=== PATIENT | female | born 1980 | race Two or more races ===

== ENCOUNTER 2020-04-30 11:02 | Emergency (ER) | payer OTHER ==
[~2020-04-30] VITALS: Ht 167.6 cm; Wt 129.0 kg
[2020-04-30] MEDS ORDERED: diazePAM 5 MG TABLET PO ONE (12:30)
[2020-04-30] MEDS ORDERED: KETOROLAC 60 MG/2 ML VIAL. IM ONE (12:30)
--- NOTE | 2020-04-30 12:43 | ED.ADGEN ---
Past Medical History Past Medical History: Anxiety, Hypertension, Migraines Past Surgical History: , Tonsillectomy Smoking Status: Never Smoker Alcohol Use: None General Adult EDM: Chief Complaint: LOWER EXT PAIN HPI: HPI: Patient is a 39-year-old female who presents to the emergency room complaining of right leg pain. She has had chronic knee pain for the last 4 years. She is now having pain in her calf and behind her knee. She is also having a tingling sensation in her leg and shooting pains through her hip. She denies any trauma. 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 Review of Systems: Review of Systems: General: Denies fever, chills, sweats, fatigue Eyes: Denies drainage, blurred vision, eye redness HENT: Denies rhinorrhea, sore throat, earache Respiratory: Denies cough, shortness of breath, wheezing Cardiac: Denies edema, palpitations, chest pain GI: Denies abdominal pain, Nausea, vomiting MSK: Denies back pain, neck pain Skin: Denies rash, jaundice Neuro: Denies headache, dizziness Psychiatric: Denies SI/HI Current Medications: Current Medications Medications (Trade) Dose Ordered Sig/Lynn Start Time Stop Time Status Last Admin Dose Admin Diazepam (Valium) 5 mg 1X ONCE 04/30/20 12:30 04/30/20 12:33 DC 04/30/20 13:28 5 MG Ketorolac Tromethamine (Toradol 30mg Vial) 30 mg 1X ONCE 04/30/20 13:30 04/30/20 13:31 DC 04/30/20 13:28 30 MG Ketorolac Tromethamine (Toradol Im) 60 mg 1X ONCE 04/30/20 12:30 04/30/20 13:23 DC Allergies: Allergies: Allergies Coded Allergies Type Severity Reaction Last Updated Verified Penicillins Allergy Unknown RASH 04/30/20 Yes Physical Exam: PE: General: Awake, alert, NAD. Well Nourished, well hydrated. Cooperative HEENT: Atraumatic, EOMI, PERRL, airway patent, moist oral mucosa Neck: Supple, trachea midline Respiratory: CTA bilaterally, normal effort, no wheezing/crackles CV: RRR, no murmur, cap refill <2 GI: Soft, nondistended, nontender, no masses MSK: Right lower extremity: Trace nonpitting edema, tenderness along the posterior calf, no knee effusion, no signs of trauma, no deformity, normal sensation, normal strength Skin: Warm, dry, intact Neuro: A&O x3, speech NL, sensory and motor grossly intact, no focal deficits Psych: Normal affect, normal mood, not suicidal or homicidal Current Patient Data: Labs: Laboratory Tests Test 04/30/20 13:10 Sodium Level 141 mmol/L (136-145) Potassium Level 3.7 mmol/L (3.5-5.1) Chloride Level 104 mmol/L (98-107) Carbon Dioxide Level 26 mmol/L (21-32) Anion Gap 11 (6-14) Blood Urea Nitrogen 13 mg/dL (7-20) Creatinine 0.7 mg/dL (0.6-1.0) Estimated GFR (Cockcroft-Gault) 93.2 Glucose Level 135 mg/dL (70-99) H Calcium Level 9.4 mg/dL (8.5-10.1) Magnesium Level 2.1 mg/dL (1.8-2.4) Laboratory Tests 04/30/20 13:10 Vital Signs: Vital Signs Date Time Temp Pulse Resp B/P (MAP) Pulse Ox O2 Delivery O2 Flow Rate FiO2 04/30/20 11:07 97.9 84 16 139/88 (105) 99 Room Air 97.9 EKG: EKG: [] Heart Score: Risk Factors: Risk Factors: DM, Current or recent (<one month) smoker, HTN, HLP, family history of CAD, obesity. Risk Scores: Score 0 - 3: 2.5% MACE over next 6 weeks - Discharge Home Score 4 - 6: 20.3% MACE over next 6 weeks - Admit for Clinical Observation Score 7 - 10: 72.7% MACE over next 6 weeks - Early Invasive Strategies Radiology/Procedures: Radiology/Procedures: [] Course & Med Decision Making: Course & Med Decision Making Pertinent Labs and Imaging studies reviewed. (See chart for details) Patient is a 39-year-old female who presents to the emergency room complaining of right leg pain. Ultrasound will be ordered to rule out DVT due to mild swelling and calf tenderness. Ultrasound is negative. Electrolytes are done to rule out muscle spasms due to electrolyte abnormalities. Electrolytes were normal. Patient is feeling significantly better with symptomatic care. Patient's test results and vitals while in the ED were fully reviewed and discu ssed with the patient. Patient is stable and at this time does not need admission to the hospital. We have discussed strict return precautions and the importance of following up with their Primary Care Physician. Patient stated understanding and was given an opportunity to ask any questions. Patient is in agreement with plan. Dragon Disclaimer: Dragon Disclaimer: This electronic medical record was generated, in whole or in part, using a voice recognition dictation system. Departure Departure Impression: Primary Impression: Knee pain Additional Impression: Muscle spasm Disposition: 01 DC HOME SELF CARE/HOMELESS Condition: STABLE Referrals: NO PCP (PCP) Patient Instructions: Knee Pain, Muscle Cramps, [id number] Scripts Methocarbamol (ROBAXIN-750) 750 Mg Tablet 1 TAB PO TID PRN for MUSCLE SPASMS for 10 Days, #30 TAB 0 Refills Prov: JANELL HALL MD 04/30/20 Problem Qualifiers JANELL HALL MD Apr 30, 2020 12:43
--- NOTE | 2020-04-30 13:13 | RAD ---
Examination: Right Lower Extremity Venous Doppler Ultrasound History: Right lower extremity pain, swelling Comparison: None Procedure: Vera scale, color flow 2D and spectal waveform analysis images are obtained with and without compression in the area of the common femoral vein, superficial femoral vein - femoral vein junction, main femoral vein (superficial femoral vein) and popliteal vein. Veins of the proximal calf are also imaged. Findings: There is normal duplex flow, color flow and compressibility of all visualized vein segments. No evidence of deep venous thrombus is present. Impression: No evidence of DVT in the right lower extremity venous system. Electronically signed by: Wilfredo Rudolph MD (04/30/2020 1:10 PM) [id number]
[2020-04-30] MEDS ORDERED: KETOROLAC 30 MG/ML VIAL. IVP ONE (13:30)
[2020-04-30 13:57] LABS: CALCIUM 9.4 mg/dL (8.5-10.1); CREATININE 0.7 mg/dL (0.6-1.0); GFR 93.2; MAGNESIUM 2.1 mg/dL (1.8-2.4); POTASSIUM 3.7 mmol/L (3.5-5.1)
[2020-04-30 14:00] VITALS: BP 128/79
[2020-04-30] MEDS ORDERED: METH-38 PO (14:37)
== END 2020-04-30 15:30 | disposition home or self-care (01) ==
LOC: ER 11:02
DX: M25.561 Pain in right knee (principal); M79.604 Pain in right leg; M62.838 Other muscle spasm; R20.2 Paresthesia of skin; F41.9 Anxiety disorder, unspecified; I10 Essential (primary) hypertension; G43.909 Migraine, unspecified, not intractable, without status migrainosus; Z98.890 Other specified postprocedural states; Z90.89 Acquired absence of other organs; Z88.0 Allergy status to penicillin
CPT/HCPCS: 36415; 80048; 83735; 93971; 96374; 99284; J1885

== ENCOUNTER → 2021-01-03 | Outpatient (CLI) | payer OTHER ==
[~2021-01-03] MED LIST: METH-38 PO
--- NOTE | 2021-01-03 14:24 | KCIC ---
MR LUMBAR SPINE WO [id number] Date: 01/03/2021 10:00 AM Indication: LBP / Spl. Instructions: LBP with numbness from right hip to foot. NKI. Sx since er. Comparison: None. Technique: Multi-planar multi-weighted magnetic resonance imaging of the lumbar spine was performed w ithout intravenous contrast using the standard lumbar spine protocol. FINDINGS: The lumbar spine is normally aligned. No acute fracture. Mild multilevel degenerative disc desiccatio n and disc height loss. S2 segment probable hemangioma. The conus terminates at a normal level. No abnormal signal is seen within the visualized distal spina l cord. No clumping of intrathecal nerve roots. No soft tissue abnormality in the visualized abdomen or pelvis. T12-L1: No disc bulge. No facet arthropathy. No significant spinal stenosis or neural foraminal narro wing. L1-L2: No disc bulge. No facet arthropathy. No significant spinal stenosis or neural foraminal narrow ing. L2-L3: No disc bulge. No facet arthropathy. No significant spinal stenosis or neural foraminal narrow ing. L3-L4: Disc bulge. Mild facet arthropathy. No significant spinal stenosis. Mild left neural foraminal narrowing. L4-L5: Disc bulge with tiny central protrusion. Mild facet arthropathy. No significant spinal stenosi s or neural foraminal narrowing. L5-S1: Disc bulge with annular tear. No facet arthropathy. No significant spinal stenosis or neural f oraminal narrowing. IMPRESSION: Mild lumbar spondylosis. Electronically signed by: Mayito Milton MD (01/03/2021 2:22 PM) [id number]
== END ==
LOC: KCIC MRI 09:45
PROVIDERS: ATTEND Orthopaedic Surgery
DX: M51.17 Intervertebral disc disorders with radiculopathy, lumbosacral region (principal); M47.26 Other spondylosis with radiculopathy, lumbar region
CPT/HCPCS: 72148

== ENCOUNTER → 2021-02-21 | Outpatient (CLI) | payer OTHER ==
[~2021-02-21] MED LIST changes: +AMLO-186 PO; +METF10007 PO; +insulin
--- NOTE | 2021-02-21 12:14 | PDOC1 ---
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 and reports is became very difficult for her to walk to the point the manager environmental health and safety sent her home about a week ago because she was unable to walk with as much speed or agility as she usually does at work and they were worried about her has been off work now for about a week patient reports the pain is significant in the low back rating the right lower extremity posterior gluteus posterior lateral thigh lateral anterior thigh anteromedial thigh medial lower leg into the calf and ankle with numbness and tingling in all the toes on the right leg as well this is worse with standing walking changing positions better with sitting or laying down generally awakens her from sleep about 3-4 times a night patient reports is not effective bowel bladder control but does affect her ability to walk however she does not use any assistive devices to ambulate. Patient has had stretching strengthening therapies in the past and continues to do stretching and strengthening on her own currently has not had any formal therapy recently patient has not had any other chiropractic treatment. Patient is been taking [id number] Motrin as well as Tylenol without significant decrease in pain. She did have an MRI scan of the lumbar spine showing at the L4-5 and L5-S1 discs shows central protrusion with a tiny disc bulge L4-5 L5-S1 shows disc bulge with annular tear. Patient did see neurosurgeon who is recommending conservative measures at this time and no surgery planned. Patient reports no loss of motor function but significant fatigability of the right lower extremity with walking and even with standing. Patient scribes pain is constant tingling numbness radiating the foot aching and dull in the back patient rates her disability rating 0-10 10 me the worst is a 7 with family home responsibilities and social activity 8 with recreation 9 with occupation 7 with self-care activities and 5 life support activities PAST MEDICAL HISTORY: PMH: Arthritis, hypertension, shortness of breath, recently diagnosed type 2 diabetes PREVIOUS SURGERIES: Past Surgical Hx: x3, tonsillectomy, IUD removal, D&C CURRENT MEDICATIONS: Current Meds: Active Scripts Medications Dose Route/Sig Max Daily Dose Days Date Category [insulin] 10 02/21/21 Reported Metformin Hcl 1,000 Mg Tablet 1,000 Mg PO [id number] 02/21/21 Reported Amlodipine Besylate 5 Mg Tablet 5 Mg PO DAILY 02/21/21 Reported ALLERGIES; Allergies: Coded Allergies: Penicillins (Verified Allergy, Unknown, RASH, 04/30/20) FAMILY HISTORY: Family Hx: No major medical problems or conditions that she is aware of. SOCIAL HISTORY: Social Hx: Patient is nondrug alcohol does not smoke says any illegal illicit recreational drugs is single has 2 children living at home lives locally in [facility] and works at a local [employer] center. REVIEW OF SYSTEMS: ROS: Positive for those items mentioned in history of present illness, all systems are reviewed, otherwise negative ,and are complete full and well-documented on patient's chart. PHYSICAL EXAM: VS: Blood pressure is 138/91 pulse 70 respirations 18 temperature 90.4 F height is 5 foot 6 inches weight is 302 pounds PE: PHYSICAL EXAMINATION: GENERAL: The patient is awake, alert, oriented, appropriate, very pleasant in demeanor HEENT: Shows normocephalic, atraumatic. Extraocular movements are intact and symmetrical. Oral cavity: Mucous membranes moist and pink. Dentition is intact. NECK: Shows anterior throat supple without palpable lymphadenopathy noted. Swallow reflex symmetrical. CHEST: Shows normal on inspection. Breath sounds are clear bilaterally, no rales rhonchi wheezes auscultated. HEART: Shows S1, S2 clear. No murmurs auscultated. ABDOMEN: Soft, nontender, nondistended, obese. No palpable organomegaly is noted. No rebound or guarding demonstrated. BACK: Shows spine grossly in the midline. Normal-appearing cervical lordotic curvature. There is slightly increased thoracic kyphosis, some minor flattening of the lumbar lordotic curvature. Lumbar paraspinous muscles show symmetrical on inspection, on palpation shows some moderate tenderness diffusely throughout the upper, middle and lower distribution of the paraspinous muscles bilaterally and also into the lower thoracic paraspinous musculature, firm and tender, but without specific trigger points, without radiation of pain. The patient has good rotational motion of the lumbar spine, both laterally as well as extension and flexion without significant difficulty. No tenderness over the spinous processes, sacrum or sacroiliac regions. EXTREMITIES: Lower extremities show deep tendon reflexes 1 in the patellar and tendo calcaneus tendons. Motor exam is 4 on a scale of 5 with right dorsiflexion, extension, quadriceps and hamstring flexion and 5/5 on the left. Peripheral pulses are 1+ posterior tibial. No peripheral edema is noted bilaterally. Lower extremities are warm and dry to touch, equal in color and appearance. Straight leg raise noted to be positive on the right about 45 degrees, left side is negative. Gaenslen's and Eric's maneuvers are negative as well. The patient is able to stand, stand on her toes without significant difficulty or loss of balance, walks with a slight favoring gait does appear to favor the right lower extremity not use any assistive devices to ambulate. SKIN: Shows warm and dry, good turgor. No edema. No sores, rashes or bruising throughout. IMPRESSION: Impression: 40-year-old female with several year history of low back right lower extremity pain and much worse over the past few months with difficulty walking, and radiculopathy in L4-5 dermatomal distribution on the right. MRI scan lumbar spine as noted Hypertension Arthritis Obesity Type 2 diabetes Plan: Options were discussed the patient including conservative management physical therapies and interventional techniques. Patient is currently doing stretching strength exercises on her own staying active until last week at work and is taking oral analgesics, she would like to pursue interventional techniques. We discussed a lumbar epidural steroid injection using descriptions as well as anatomical models to describe the procedure. Patient wait for preauthorization with insurance provider once from today and will return for L4- 5 level translaminar lumbar epidural steroid injection at that time. The meantime, will call in a [email or web address] Dosepak for her to her local pharmacy patient was given instructions well side effects aware of with the medication. CONSUELO ALVAREZ MD Feb 21, 2021 12:14
== END | disposition home or self-care (01) ==
LOC: PNCL 10:08
PROVIDERS: ATTEND Anesthesiology
DX: M54.5 Low back pain (principal); M79.604 Pain in right leg; M19.90 Unspecified osteoarthritis, unspecified site; I10 Essential (primary) hypertension; E11.9 Type 2 diabetes mellitus without complications; Z79.899 Other long term (current) drug therapy; Z98.890 Other specified postprocedural states; Z88.0 Allergy status to penicillin
CPT/HCPCS: G0463

== ENCOUNTER → 2021-03-08 | Outpatient (CLI) | payer OTHER ==
[~2021-03-08] MED LIST changes: +IOHEXOL 180 MG/ML 10 ML VIAL. ONE; +METF500T16 PO; -insulin; +insulin SUBCUT; +methylPREDNISolone ACETATE 80 MG/ML VIAL. ONE
--- NOTE | 2021-03-08 10:31 | PDOC ---
Progress Note - Pain Clinic Date of Service: DOS: DATE: 03/08/21 TIME: 10:27 Diagnosis: Dx: Lumbar radiculopathy with lumbar degenerative disc disease History or Present Illness: HPI: 40-year-old female returns for follow-up status post evaluation and Medrol Dosepak patient reports still significant pain in the low back and right lower extremity patient reports that the pain is now across the low back and on the left side of the low back which it was not previously is a new finding and still on the right side in the right lower extremity posterior gluteus posterior lateral thigh lateral anterior thigh anterior medial thigh patient reports is a form scale 10 is worst average and least and that the Medrol pack did help to decrease the pain by about 50% while she was taking it but the pain is returning to its baseline level. Patient reports it is aching pain is tingling and burning in the right leg in the low back across the low back into the left side now as well as the right. Patient reports no bowel or bladder incontinence no motor loss but significant fatigability of the right leg with standing walking and changing positions. Patient reports still awakens her from sleep at night about every 4-5 hours. Physical Exam: VS: Blood pressure is 143/106 pulse 87 respirations are 16 temperature is 98.2 F height is 5 feet 6 inches weight is 305 pounds. PE: PHYSICAL EXAMINATION: GENERAL: The patient is awake, alert, oriented, appropriate, very pleasant in demeanor HEENT: Shows normocephalic, atraumatic. Extraocular movements are intact and symmetrical. Oral cavity: Mucous membranes moist and pink. Dentition is intact. NECK: Shows anterior throat supple without palpable lymphadenopathy noted. Swallow reflex symmetrical. CHEST: Shows normal on inspection. Breath sounds are clear bilaterally, no rales or rhonchi. HEART: Shows S1, S2 clear. No murmurs auscultated. ABDOMEN: Soft, nontender, nondistended, obese. No palpable organomegaly is noted. BACK: Shows spine grossly in the midline. Normal-appearing cervical lordotic curvature. There is slightly increased thoracic kyphosis, some minor flattening of the lumbar lordotic curvature. Lumbar paraspinous muscles show symmetrical on inspection, on palpation shows some moderate tenderness diffusely throughout the upper, middle and lower distribution of the paraspinous muscles, but without specific trigger points, without radiation of pain. The patient has good rotational motion of the lumbar spine, both laterally as well as extension and flexion without significant difficulty. EXTREMITIES: Lower extremities show deep tendon reflexes 1+ in the patellar and tendo calcaneus tendons. Motor exam is 4 on a scale of 5 with right dorsiflexion, extension, quadriceps and hamstring flexion and 5/5 on the left. Peripheral pulses are 1+ posterior tibial. No peripheral edema is noted bilaterally. Lower extremities are warm and dry to touch, equal in color and appearance. SKIN: Shows warm and dry, good turgor. No edema. No sores, rashes or bruising throughout. Procedure: Procedure: Options were discussed with patient. Patient chart was reviewed as her current medication regimen updated current review of systems updated today as well. We will proceed with a lumbar epidural steroid injection today with fluoroscopic guidance. Risks were discussed including but not limited to: Bleeding, infection, possibility of epidural hematoma and subsequent neurological compromise, dural puncture, headaches, spinal cord and/or nerve damage, side effects of steroid medication, and poor results regarding pain control. Patient understands and wished to proceed. Patient will return to clinic in approximately 2 weeks for follow-up, was counseled as return appointment, activ ity level, and side effects to be aware of. Medication Injected: Med Injected: Procedure is lumbar epidural steroid injection under local anesthetic using sterile prep and drape at the L4-5 level using C-arm fluoroscopic guidance in both AP and lateral views medications injected is 120 mg Depo-Medrol +10mL preservative-free normal saline and 2 mL contrast- condition at discharge is stable patient tolerated procedure well had no complications. Condition at Discharge: Condition at Discharge: Condition at discharge stable, patient already the procedure well and had no co mplications. CONSUELO ALVAREZ MD Mar 08, 2021 10:31
--- NOTE | 2021-03-08 10:32 | PDOC4 ---
Procedure Note: ICD 10 Code: ICD 10 Code: M54.16 M51.36 Procedure Note: Patient was consented for lumbar epidural steroid injection with fluoroscopic guidance. Risks were discussed including but not limited to: Bleeding, infection, possibility of epidural hematoma and subsequent neurological compromise, dural puncture, headaches, spinal cord and/or nerve damage, side effects of steroid medication, and poor results regarding pain control. Patient understands and wished to proceed. Procedure is lumbar epidural steroid injection under local anesthetic using sterile prep and drape at the L4-5 level using C-arm fluoroscopic guidance in both AP and lateral views medications injected is 120 mg Depo-Medrol +10mL preservative-free normal saline and 2 mL contrast- condition at discharge is stable patient tolerated procedure well had no complications. CONSUELO ALVAREZ MD Mar 08, 2021 10:32
== END | disposition home or self-care (01) ==
LOC: PNCL 09:50
PROVIDERS: ATTEND Anesthesiology
DX: M51.16 Intervertebral disc disorders with radiculopathy, lumbar region (principal); Z79.84 Long term (current) use of oral hypoglycemic drugs; Z79.899 Other long term (current) drug therapy; Z88.0 Allergy status to penicillin; Z88.8 Allergy status to other drugs, medicaments and biological substances
CPT/HCPCS: 62323; J1040; Q9965

== ENCOUNTER → 2021-03-22 | Outpatient (CLI) | payer OTHER ==
[~2021-03-22] MED LIST changes: -IOHEXOL 180 MG/ML 10 ML VIAL. ONE; -methylPREDNISolone ACETATE 80 MG/ML VIAL. ONE
--- NOTE | 2021-03-22 11:15 | PDOC ---
Progress Note - Pain Clinic Date of Service: DOS: DATE: 03/22/21 TIME: 11:13 Diagnosis: Dx: Lumbar radiculopathy with lumbar degenerative disc disease History or Present Illness: HPI: 40-year-old female returns follow-up status post lumbar epidural steroid injection x1. Patient reports about 50% improvement in the low back and right lower extremity doing much better patient reports her knees are feeling better as well but pain in the back and the right leg is much improved patient reports he is increase in distance walking doing household activities work activities as well as travel with greater ease and comfort sleeping better patient reports is beginning to return now in a radicular fashion on the right side still following L4-5 dermatomal distribution on the right but much better than it was patient reports a 3 on scale 10 is worse over the past week to an average to its least is a 2 today. Patient scribes aching and burning tight at times and radiating in the right leg patient reports posterior gluteus lateral thigh anterior thigh medial thigh medial lower leg as well on the right side only. Patient reports no bowel or bladder incontinence. Physical Exam: VS: Blood pressure is 144/95 pulse 85 respirations 18 temperature 90.1 F weight is 305 pound PE: PHYSICAL EXAMINATION: GENERAL: The patient is awake, alert, oriented, appropriate, very pleasant in demeanor HEENT: Shows normocephalic, atraumatic. Extraocular movements are intact and symmetrical. Oral cavity: Mucous membranes moist and pink. Dentition is intact. NECK: Shows anterior throat supple without palpable lymphadenopathy noted. Swallow reflex symmetrical. CHEST: Shows normal on inspection. Breath sounds are clear bilaterally, distant no rales or rhonchi. HEART: Shows S1, S2 clear. No murmurs auscultated. ABDOMEN: Soft, nontender, nondistended, obese. No palpable organomegaly is noted. BACK: Shows spine grossly in the midline. Normal-appearing cervical lordotic curvature. There is slightly increased thoracic kyphosis, some minor flattening of the lumbar lordotic curvature. Lumbar paraspinous muscles show symmetrical on inspection, on palpation shows some moderate tenderness diffusely throughout the upper, middle and lower distribution of the paraspinous muscles, but without specific trigger points, without radiation of pain. The patient has good rotational motion of the lumbar spine, both laterally as well as extension and flexion without significant difficulty. No tenderness over the spinous proc esses, sacrum or sacroiliac regions. EXTREMITIES: Lower extremities show deep tendon reflexes 1 in the patellar and tendo calcaneus tendons. Motor exam is 4 on a scale of 5 with right dorsiflexion, extension, quadriceps and hamstring flexion and 5/5 on the left. Peripheral pulses are 1+ posterior tibial. No peripheral edema is noted bilaterally. Lower extremities are warm and dry to touch, equal in color and appearance. SKIN: Shows warm and dry, good turgor. No edema. No sores, rashes or bruising throughout. Procedure: Procedure: Options discussed with patient. Patient chart was reviewed as her current medication regimen updated current view of systems updated today as well. We will await preauthorization with patient's insurance provider for second lumbar epidural steroid injection she did very well after the first injection about 50% improvement for the first 2 weeks pain returning now in the right lower extremity and L4-5 dermatomal distribution. Patient will continue with stretching strength exercises as currently as well as oral analgesics as currently. Once approved, patient will return to clinic for a translaminar approach L4-5 level lumbar epidural steroid injection with fluoroscopic guidance. Medication Injected: Med Injected: None Condition at Discharge: Condition at Discharge: Condition at discharge is stable. CONSUELO ALVAREZ MD Mar 22, 2021 11:15
== END | disposition home or self-care (01) ==
LOC: PNCL 09:54
PROVIDERS: ATTEND Anesthesiology
DX: M51.16 Intervertebral disc disorders with radiculopathy, lumbar region (principal); Z79.84 Long term (current) use of oral hypoglycemic drugs; Z79.899 Other long term (current) drug therapy
CPT/HCPCS: 99212; G0463

== ENCOUNTER 2021-05-15 08:31 | Emergency (ER) | payer MEDICAID | END 2021-05-15 10:30 | disposition left against medical advice (07) | LOC: ER 08:31 | DX: R51.9 Headache, unspecified (principal); Z53.21 Procedure and treatment not carried out due to patient leaving prior to being seen by health care provider ==

== ENCOUNTER → 2021-05-23 | Outpatient (CLI) | payer MEDICAID ==
[~2021-05-23] MED LIST changes: +IOHEXOL 180 MG/ML 10 ML VIAL. ONE; +methylPREDNISolone ACETATE 40 MG/ML VIAL. ONE; +methylPREDNISolone ACETATE 80 MG/ML VIAL. ONE
--- NOTE | 2021-05-23 14:46 | PDOC ---
Progress Note - Pain Clinic Date of Service: DOS: DATE: 05/23/21 TIME: 14:43 Diagnosis: Dx: Lumbar radiculopathy with lumbar degenerative disc disease History or Present Illness: HPI: 4-year-old female returns for follow-up status post lumbar epidural steroid injection x1 on March 08, 2021 patient did very well with at least 50% improvement in the low back and right lower extremity pain patient reports new pain now in the left lower extremity as well which is not had previously patient reports is getting worse on the left side as well as the right side and across the low back significantly patient reports is worse with walking standing changing positions patient was fired from her old job secondary to inability to perform her report, and 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 Patient reports no bowel or bladder incontinence but significant fatigability of both lower extremities. Patient reports injection but the pain returned after several weeks and now again bilateral. Physical Exam: VS: Blood pressure is 139/102 pulse 93 respirations are 18 temperature is 98.2 F height is 5 feet 6 inches weight is 309 pounds. PE: PHYSICAL EXAMINATION: GENERAL: The patient is awake, alert, oriented, appropriate, very pleasant in demeanor HEENT: Shows normocephalic, atraumatic. Extraocular movements are intact and symmetrical. Oral cavity: Mucous membranes moist and pink. Dentition is intact. NECK: Shows anterior throat supple without palpable lymphadenopathy noted. Swallow reflex symmetrical. CHEST: Shows normal on inspection. Breath sounds are clear bilaterally, no rales rhonchi or wheezes auscultated. HEART: Shows S1, S2 clear. No murmurs auscultated. ABDOMEN: Soft, nontender, nondistended, obese. No palpable organomegaly is noted. BACK: Shows spine grossly in the midline. Normal-appearing cervical lordotic curvature. There is slightly increased thoracic kyphosis, some minor flattening of the lumbar lordotic curvature. Lumbar paraspinous muscles show symmetrical on inspection, on palpation shows some moderate tenderness diffusely throughout the upper, middle and lower distribution of the paraspinous muscles without specific trigger points, without radiation of pain. The patient has good rotational motion of the lumbar spine, both laterally as well as extension and flexion without significant difficulty. EXTREMITIES: Lower extremities show deep tendon reflexes 1 in the patellar and tendo calcaneus tendons. Motor exam is 4 on a scale of 5 with right dorsiflexion, extension, quadriceps and hamstring flexion and 5/5 on the left. Peripheral pulses are 1+ posterior tibial. No peripheral edema is noted bilaterally. Lower extremities are warm and dry to touch, equal in color and appearance. SKIN: Shows warm and dry, good turgor. No edema. No sores, rashes or bruising throughout. Procedure: Procedure: Options discussed with patient. Patient's old chart was reviewed as her current medication regimen updated current review of systems updated today as well. We will proceed with a lumbar epidural steroid injection today with fluoroscopic guidance. Risks were discussed including but not limited to: Bleeding, infection, possibility of epidural hematoma and subsequent neurological compromise, dural puncture, headaches, spinal cord and/or nerve damage, side effects of steroid medication, and poor results regarding pain control. Patient understands and wished to proceed. She will return to clinic in approximate 2 weeks for follow-up, was counseled as return appointment, activity level, and side effect to be aware of. Medication Injected: Med Injected: Procedure is lumbar epidural steroid injection under local anesthetic using sterile prep and drape at the L4-5 level using C-arm fluoroscopic guidance in both AP and lateral views medications injected is 120 mg Depo-Medrol +10mL preservative-free normal saline and 2 mL contrast- condition at discharge is stable patient tolerated procedure well had no complications. Condition at Discharge: Condition at Discharge: Condition at discharge is stable, patient tolerated procedure well and had no complications. CONSUELO ALVAREZ MD May 23, 2021 14:46
--- NOTE | 2021-05-23 14:47 | PDOC4 ---
Procedure Note: ICD 10 Code: ICD 10 Code: M54.16 M51.36 Procedure Note: Patient was consented for lumbar epidural steroid injection with fluoroscopic guidance. Risks were discussed including but not limited to: Bleeding, infection, possibility of epidural hematoma and subsequent neurological compromise, dural puncture, headaches, spinal cord and/or nerve damage, side effects of steroid medication, and poor results regarding pain control. Patient understands and wished to proceed. Procedure is lumbar epidural steroid injection under local anesthetic using sterile prep and drape at the L4-5 level using C-arm fluoroscopic guidance in both AP and lateral views medications injected is 120 mg Depo-Medrol +10mL preservative-free normal saline and 2 mL contrast- condition at discharge is stable patient tolerated procedure well had no complications. CONSUELO ALVAREZ MD May 23, 2021 14:47
== END | disposition home or self-care (01) ==
LOC: PNCL 13:52
PROVIDERS: ATTEND Anesthesiology
DX: M51.16 Intervertebral disc disorders with radiculopathy, lumbar region (principal); Z79.84 Long term (current) use of oral hypoglycemic drugs; Z79.899 Other long term (current) drug therapy; Z88.0 Allergy status to penicillin
CPT/HCPCS: 62323; J1030; J1040; Q9965

== ENCOUNTER → 2021-06-06 | Outpatient (CLI) | payer MEDICAID ==
--- NOTE | 2021-06-06 13:53 | PDOC4 ---
Procedure Note: ICD 10 Code: ICD 10 Code: M54.16 M51.36 Procedure Note: Patient was consented for lumbar epidural steroid injection with fluoroscopic guidance. Risks were discussed including but not limited to: Bleeding, infection, possibility of epidural hematoma and subsequent neurological compromise, dural puncture, headaches, spinal cord and/or nerve damage, side effects of steroid medication, and poor results regarding pain control. Patient understands and wished to proceed. Procedure is lumbar epidural steroid injection under local anesthetic using sterile prep and drape at the L4-5 level using C-arm fluoroscopic guidance in both AP and lateral views medications injected is 120 mg Depo-Medrol +10mL preservative-free normal saline and 2 mL contrast- condition at discharge is stable patient tolerated procedure well had no complications. CONSUELO ALVAREZ MD Jun 06, 2021 13:53
--- NOTE | 2021-06-06 13:53 | PDOC ---
Progress Note - Pain Clinic Date of Service: DOS: DATE: 06/06/21 TIME: 13:50 Diagnosis: Dx: Lumbar radiculopathy with lumbar degenerative disc disease History or Present Illness: HPI: 40-year-old female returns for follow-up status post lumbar epidural steroid injection last seen in September 11 patient did very well reports that both legs were hurting at that time now only her right side is more painful the pain is cramping up into the mid and upper back more than it was previously patient reports a 10 on scale 10 is worst average and 9 at its least is a 10 today patient reports is worse with walking standing changing positions getting up and down from seated position wakes her from sleep about every 3-4 hours at night patient reports no loss of motor function about the legs are doing somewhat better especially on the left side the back is still significant painful as is the mid upper back patient reports no bowel or bladder incontinence significant debility of the right lower extremity at this time. Physical Exam: VS: Blood pressure is 150/93 pulse 74 respirations 18 temperature is 90.2 F height is 5 feet 6 inches weight is 308 pounds PE: PHYSICAL EXAMINATION: GENERAL: The patient is awake, alert, oriented, appropriate, very pleasant in demeanor HEENT: Shows normocephalic, atraumatic. Extraocular movements are intact and symmetrical. Oral cavity: Mucous membranes moist and pink. Dentition is intact. NECK: Shows anterior throat supple without palpable lymphadenopathy noted. Swallow reflex symmetrical. CHEST: Shows normal on inspection. Breath sounds are clear bilaterally distant but clear. HEART: Shows S1, S2 clear. No murmurs auscultated. ABDOMEN: Soft, nontender, nondistended bilaterally, obese. No palpable organomegaly is noted. BACK: Shows spine grossly in the midline. Normal-appearing cervical lordotic curvature. There is slightly increased thoracic kyphosis, some minor flattening of the lumbar lordotic curvature. Lumbar paraspinous muscles show symmetrical on inspection, on palpation shows some moderate tenderness diffusely throughout the upper, middle and lower distribution of the paraspinous muscles without specific trigger points, without radiation of pain. The patient has good rotational motion of the lumbar spine, both laterally as well as extension and flexion without significant difficulty. No tenderness over the spinous processes, sacrum or sacroiliac regions. EXTREMITIES: Lower extremities show deep tendon reflexes 2+ in the patellar and tendo calcaneus tendons. Motor exam is 4 on a scale of 5 with right dorsiflexion, extension, quadriceps and hamstring flexion and 5/5 on the left. Peripheral pulses are 1 posterior tibial. No peripheral edema is noted bilaterally. Lower extremities are warm and dry to touch, equal in color and appearance. SKIN: Shows warm and dry, good turgor. No edema. No sores, rashes or bruising throughout. Procedure: Procedure: Options discussed with patient. Chart reviewed as her current medication regimen updated current review of systems updated today as well. We will proceed with a lumbar epidural steroid ejections today with fluoroscopic guidance. Risks were discussed including but not limited to: Bleeding, infection, possibility of epidural hematoma and subsequent neurological compromise, dural puncture, headaches, spinal cord and/or nerve damage, side effects of steroid medication, and poor results regarding pain control. Patient understands and wished to proceed. Patient will return to clinic in approximately 2 weeks for follow-up, was counseled as return appointment, activity level, and side effects to be aware of. Medication Injected: Med Injected: Procedure is lumbar epidural steroid injection under local anesthetic using sterile prep and drape at the L4-5 level using C-arm fluoroscopic guidance in both AP and lateral views medications injected is 120 mg Depo-Medrol +10mL preservative-free normal saline and 2 mL contrast- condition at discharge is stable patient tolerated procedure well had no complications. Condition at Discharge: Condition at Discharge: Condition at discharge stable, patient Jess the procedure well and no complications. CONSUELO ALVAREZ MD Jun 06, 2021 13:53
== END | disposition home or self-care (01) ==
LOC: PNCL 13:15
PROVIDERS: ATTEND Anesthesiology
DX: M51.16 Intervertebral disc disorders with radiculopathy, lumbar region (principal); Z79.84 Long term (current) use of oral hypoglycemic drugs; Z79.899 Other long term (current) drug therapy; Z88.0 Allergy status to penicillin
CPT/HCPCS: 62323; J1030; J1040; Q9965

== ENCOUNTER → 2021-11-15 | Outpatient (CLI) | payer MEDICAID ==
[~2021-11-15] MED LIST changes: +DEXAMETHASONE PRES.FREE 10 MG/ML VIAL. ONE; -methylPREDNISolone ACETATE 40 MG/ML VIAL. ONE; -methylPREDNISolone ACETATE 80 MG/ML VIAL. ONE
--- NOTE | 2021-11-15 12:10 | PDOC ---
Progress Note - Pain Clinic Date of Service: DOS: DATE: 11/15/21 TIME: 12:07 Diagnosis: Dx: Lumbar radiculopathy with lumbar degenerative disc disease History or Present Illness: HPI: 41-year-old female returns for follow-up last seen June 23, 2021 patient did very well after lumbar epidural steroid injection patient reports her low back and right leg doing better by about 75% however the pain began to return over the past month or so and now is in both lower extremities instead of just the right lower extremity as was previously patient reports no recent injury or accident the pain is getting worse in both the right and left lower extremity po sterior gluteus posterior lateral thigh lateral anterior thigh and anterior medial thighs also significant pain in the knees with walking and standing as well as climbing stairs or steps. Patient reports some pain in the left shoulder as well. Patient rates her pain a 9 on scale 10 at its worst over the past week 8 on average and 7 at its least in the back and lower extremities and is a 7 today. She describes aching sharp in the back stabbing constant can be unbearable as well. Patient reports no bowel or bladder incontinence no loss of motor function with significant fatigability with lower extremities with ambulation and standing. Physical Exam: VS: Blood pressure is 151/95 pulse 76 respirations 18 temperature 98.8 F height is 5 feet 6 inches weight is 317 pounds. PE: PHYSICAL EXAMINATION: GENERAL: The patient is awake, alert, oriented, appropriate, very pleasant in demeanor HEENT: Shows normocephalic, atraumatic. Extraocular movements are intact and symmetrical. Oral cavity: Mucous membranes moist and pink. Dentition is intact. NECK: Shows anterior throat supple without palpable lymphadenopathy noted. Swallow reflex symmetrical. CHEST: Shows normal on inspection. Breath sounds are clear bilaterally, distant no rales or rhonchi auscultated. HEART: Shows S1, S2 clear. No murmurs auscultated. ABDOMEN: Soft, nontender, nondistended. No palpable organomegaly is noted. BACK: Shows spine grossly in the midline. Normal-appearing cervical lordotic curvature. There is mildly increased thoracic kyphosis, some flattening of the lumbar lordotic curvature. Lumbar paraspinous muscles show symmetrical on inspection, on palpation shows some moderate tenderness diffusely throughout the upper, middle and lower distribution of the paraspinous musculature, but without specific trigger points, without radiation of pain. The patient has good rotational motion of the lumbar spine, both laterally as well as extension and flexion without significant difficulty. EXTREMITIES: Lower extremities show deep tendon reflexes 1+ in the patellar and tendo calcaneus tendons. Motor exam is 4 on a scale of 5 with right dorsiflexion, extension, quadriceps and hamstring flexion and 5/5 on the left. Peripheral pulses are 1+ posterior tibial. No peripheral edema is noted bilaterally. Lower extremities are warm and dry to touch, equal in color and appearance. SKIN: Shows warm and dry, good turgor. No edema. No sores, rashes or bruising throughout. Procedure: Procedure: Discussed with patient. Patient's chart was use her current medication regimen updated current review of systems updated today as well. We will proceed with a lumbar epidural steroid injection today with fluoroscopic guidance. Risks were discussed including but not limited to: Bleeding, infection, possibility of epidural hematoma and subsequent neurological compromise, dural puncture, headaches, spinal cord and/or nerve damage, side effects of steroid medication, and poor results regarding pain control. Patient understands and wished to proceed. Patient will return to clinic in approximate 2 weeks for follow-up, was counseled as return appointment, activity level, and side effects to be aware of. Medication Injected: Med Injected: Procedure is lumbar epidural steroid injection under local anesthetic using sterile prep and drape at the L4-5 level using C-arm fluoroscopic guidance in both AP and lateral views medications injected is 20 mg dexamethasone +10mL preservative-free normal saline and 2 mL contrast- condition at discharge is stable patient tolerated procedure well had no complications. Condition at Discharge: Condition at Discharge: Condition at discharge is stable, patient tolerated the procedure well and had no complications. CONSUELO ALVAREZ MD November 15, 2021 12:10
--- NOTE | 2021-11-15 12:11 | PDOC4 ---
Procedure Note: ICD 10 Code: ICD 10 Code: M54.16 M51.36 Procedure Note: Patient was consented for lumbar epidural steroid injection with fluoroscopic guidance. Risks were discussed including but not limited to: Bleeding, infection, possibility of epidural hematoma and subsequent neurological compromise, dural puncture, headaches, spinal cord and/or nerve damage, side effects of steroid medication, and poor results regarding pain control. Patient understands and wished to proceed. Procedure is lumbar epidural steroid injection under local anesthetic using sterile prep and drape at the L4-5 level using C-arm fluoroscopic guidance in both AP and lateral views medications injected is 20 mg dexamethasone +10mL preservative-free normal saline and 2 mL contrast- condition at discharge is stable patient tolerated procedure well had no complications. CONSUELO ALVAREZ MD November 15, 2021 12:11
== END | disposition home or self-care (01) ==
LOC: PNCL 11:08
PROVIDERS: ATTEND Anesthesiology
DX: M51.16 Intervertebral disc disorders with radiculopathy, lumbar region (principal); Z79.84 Long term (current) use of oral hypoglycemic drugs; Z79.899 Other long term (current) drug therapy; Z88.0 Allergy status to penicillin
CPT/HCPCS: 62323; J1100; Q9965